=== PATIENT | male | born 1965 | race Caucasian/White ===

== ENCOUNTER 2017-01-02 12:28 | Inpatient (IN) | payer MEDICARE, OTHER ==
[~2017-01-02] VITALS: Ht 180.3 cm; Wt 73.2 kg
[2017-01-02] MEDS ORDERED: LORazepam 1 MG TAB PO PRN (13:15)
[2017-01-02] MEDS ORDERED: MAGNESIUM HYDROXIDE SUSP 30 ML CUP PO PRN (13:15)
[2017-01-02] MEDS ORDERED: ALUMINUM/MAGNESIUM/SIMETH 30 ML CUP PO PRN (13:15)
[2017-01-02] MEDS ORDERED: LORazepam 2 MG/ML VIAL IM PRN (13:15)
[2017-01-02 13:20] VITALS: BP 141/71; PULSE 82; O2SAT 100
--- NOTE | 2017-01-02 14:51 | PD.CONS ---
[facility] By Dr. Vincent Reason for Consult Medical management Primary Care Physician Unknown Diagnoses: History of Present Illness This is a 51-year-old male history of schizophrenia type 2 diabetes who was Fernandez act and admitted to inpatient psychiatry. [facility] consulted for medical management. Patient only concern is that he developed left ankle swelling 2 days ago. Patient stated that he had a previous left ankle fracture about a year ago and per natural sciences manager was managed conservatively/non-operative. Patient stated 2 days ago with swelling of his ankle developed. He denied twisting his ankle or any trauma to the area. Positive for pain. Denied any fevers or chills. Pain is more with movement of the left ankle. Denies any calf pain. Patient stated that he has type 2 diabetes and he smokes 5 cigars per day for about 30 years. All other review systems reviewed and negative. Past Family Social History Allergies: Coded Allergies: No Known Allergies (Verified Allergy, Unknown, 01/02/17) Past Medical History Type 2 diabetes Tobacco abuse Past Surgical History Hernia repair Repair of left broken arm Reported Medications none Active Ordered Medications Current Medications Lorazepam (Ativan) 1 mg Q6H PRN PO MODERATE TO SEVERE ANXIETY; Start 01/02/17 at 13:15 Lorazepam (Ativan Inj) 1 mg Q6H PRN IM MODERATE TO SEVERE ANXIETY; Start 01/02 at 13:15 Acetaminophen (Tylenol) 650 mg Q4H PRN PO Pain 1-5 or Temp >101F; Start at 13:15 Magnesium Hydroxide (Milk Of Magnesia Liq) 30 ml DAILY PRN PO CONSTIPATION; Start 01/02/17 at 13:15 Al Hydrox/Mg Hydrox/Simethicone (Mag-Al Plus Susp Liq) 30 ml Q6H PRN PO DYSPEPSIA; Start 01/02/17 at 13:15 Nicotine (Habitrol 21 Mg Patch.24 Hr) 1 patch DAILY T-DERMAL Last administered on 01/03/17 09:42; Start 01/03/17 at 09:00 Miscellaneous Information 1 HS T-DERMAL ; Start 01/02/17 at 21:00 Insulin Aspart (NovoLOG SUPPLEMENTAL SCALE) 1 ACHS SLIDING SCALE SQ Last administered on 01/03/17 12:00; Start 01/02/17 at 17:00; Stop 01/03/17 at 12 :40; Status DC Insulin Aspart (NovoLOG SUPPLEMENTAL SCALE) 1 ACHS SLIDING SCALE SQ ; Start at 17:00 Insulin Detemir (Levemir Inj) 10 units BID SQ ; Start 01/03/17 at 21:00 Family History Family history reviewed. Patient stated he does not know about any past medical family history. Social History Patient stated that he lives at the house with his mom. Smokes tobacco about 5 cigars a day for about 30 years. Patient stated he stopped drinking 2 months ago. He has been sober since then. Physical Exam Vital Signs Vital Signs Date Time Temp Pulse Resp B/P (MAP) Pulse Ox O2 Delivery O2 Flow Rate FiO2 01/02/17 13:20 82 141/71 (94) 100 Physical Exam GENERAL: This is a well-nourished, well-developed patient, in no apparent distress. SKIN: No rashes, ecchymoses or lesions. Cool and dry. HEAD: Atraumatic. Normocephalic. No temporal or scalp tenderness. EYES: Pupils equal round and reactive. Extraocular motions intact. No scleral icterus. No injection or drainage. ENT: Nose without bleeding, purulent drainage or septal hematoma. Throat without erythema, tonsillar hypertrophy or exudate. Uvula midline. Airway patent. NECK: Trachea midline. No JVD or lymphadenopathy. Supple, nontender, no meningeal signs. CARDIOVASCULAR: Regular rate and rhythm without murmurs, gallops, or rubs. RESPIRATORY: Clear to auscultation. Breath sounds equal bilaterally. No wheezes , rales, or rhonchi. GASTROINTESTINAL: Abdomen soft, non-tender, nondistended. No hepato-splenomegaly , or palpable masses. No guarding. MUSCULOSKELETAL: Left ankle swelling no pitting edema. No erythema noted. Range of motion limited secondary to pain. No warmth to the area. Negative for any calf pain. +2 DP and TP pulses. NEUROLOGICAL: Awake and alert. Cranial nerves II through XII intact. Motor and sensory grossly within normal limits. Five out of 5 muscle strength in all muscle groups. Normal speech. Assessment and Plan Assessment and Plan This is a 51-year-old male past medical history tentatively schizophrenia who was Fernandez act Schizophrenia/Fernandez act -Admitted to inpatient psychiatry being managed by psychiatrist. Left ankle swelling -Patient has a history of left ankle fracture in which treatment was nonoperative. -Will get a x-ray of the ankle. Recommend elevating leg swelling, rest and ice it. Type 2 diabetes -Labs ordered by primary team. Pending results. -Will order insulin sliding scope. Discussed Condition With patient Concepcion Addison MD Jan 02, 2017 14:51
--- NOTE | 2017-01-02 15:12 | RADRPT ---
EXAM DATE/TIME: 01/02/2017 13:55 [facility] COMPARISON: No previous studies available for comparison. INDICATIONS : Pain from fall. MEDICAL HISTORY : None. SURGICAL HISTORY : None. ENCOUNTER: Initial ACUITY: 1 day PAIN SCORE: 5/10 LOCATION: Left ankle. FINDINGS: AP, lateral and oblique views of the left ankle were obtained and demonstrate an intact ankle mortise . Extensive degenerative changes noted in the metatarsal tarsal joint and intertarsal joints with scl erosis, spurring and remodeling. There is diffuse soft tissue swelling. CONCLUSION: 1. Extensive degenerative changes in the mid and hindfoot. This may represent a Charcot joint. 2. Left ankle mortise is intact with no acute fracture. 3. Diffuse soft tissue swelling. Bob Richardson MD on January 02, 2017 at 15:03 Board Certified Radiologist. This report was verified electronically.
[2017-01-02] MEDS: INSULIN ASPART SUPPLEMENTAL SCALE SQ SCH ×2 (16:45→21:05)
[2017-01-02] MEDS: REMOVE OLD NICOTINE PATCH T-DERMAL SCH (21:00)
[2017-01-03 05:46] VITALS: BP 146/72; PULSE 77; RESP 18; TEMP 97.9; O2SAT 99
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
[2017-01-03] MEDS: NICOTINE 21 MG/24 HR PATCH T-DERMAL SCH (09:42)
[2017-01-03 09:43] LABS: BICARBONATE 26.7 MEQ/L (21.0-32.0); BLOOD UREA NITROGEN 12 MG/DL (7-18); CALCIUM 8.8 MG/DL (8.5-10.1); CHLORIDE 102 MEQ/L (98-107); CREATININE 0.67 MG/DL (0.60-1.30); GLOMERULAR FILTRATION RATE 124 ML/MIN (>89); GLUCOSE,RANDOM 320 MG/DL (74-106); SODIUM (NA) 135 MEQ/L (136-145)
[2017-01-03] MEDS: INSULIN ASPART SUPPLEMENTAL SCALE SQ SCH ×4 (09:43→20:29)
[2017-01-03 09:49] LABS: CHOLESTEROL 212 MG/DL (120-200); CHOLESTEROL/ HDL RATIO 5.68 RATIO; HDL CHOLESTEROL 37.3 MG/DL (40.0-60.0); LDL CHOLESTEROL 134 MG/DL (0-99); TRIGLYCERIDES 206 MG/DL (42-150)
[2017-01-03 16:17] LABS: HEMOGLOBIN A1C 8.5 % (4.3-6.0)
[2017-01-03] MEDS ORDERED: LISI-519 PO (16:42)
[2017-01-03] MEDS ORDERED: BENZ0.5T PO (16:42)
[2017-01-03] MEDS ORDERED: ATOR40TA16 PO (16:42)
[2017-01-03] MEDS ORDERED: NOVOINJ3 SQ (16:42)
[2017-01-03] MEDS: BACITRACIN OINT 0.9 GM PKT TOPICAL SCH (17:15)
[2017-01-03 17:36] VITALS: BP 131/75; PULSE 82; RESP 18; TEMP 98.2; O2SAT 99
--- NOTE | 2017-01-03 17:51 | RADRPT ---
EXAM DATE/TIME: 01/03/2017 17:37 [facility] COMPARISON: ANKLE LEFT COMPLETE ([id number]), January 02, 2017, 13:55. INDICATIONS : Left foot fracture, increasing pain with improper healing. MEDICAL HISTORY : None. SURGICAL HISTORY : None. ENCOUNTER: Initial ACUITY: 2 weeks PAIN SCORE: 5/10 LOCATION: Left foot. FINDINGS: Diffuse soft tissue swelling is present with subacute fractures involving the tarsal navicular as wel l as the head of the talus. This may reflect a neuropathic joint. The alignment is anatomic. There rosales s been no significant change when compared to the prior exam. CONCLUSION: 1. Subacute fractures as above. Eusebio Koenig MD on January 03, 2017 at 17:47 Board Certified Radiologist. This report was verified electronically.
--- NOTE | 2017-01-03 17:51 | RADRPT ---
EXAM DATE/TIME: 01/03/2017 17:38 [facility] COMPARISON: ANKLE LEFT COMPLETE ([id number]), January 02, 2017, 13:55. INDICATIONS : Left ankle fracture, increasing pain with improper healing. MEDICAL HISTORY : None. SURGICAL HISTORY : None. ENCOUNTER: Initial ACUITY: 2 weeks PAIN SCORE: 5/10 LOCATION: Left ankle. FINDINGS: Soft tissue swelling is present in a diffuse fashion. There is no evidence of acute fracture. Bony mi neralization is normal. The ankle mortise is intact. CONCLUSION: 1. There is no evidence of acute fracture. Eusebio Koenig MD on January 03, 2017 at 17:49 Board Certified Radiologist. This report was verified electronically.
--- NOTE | 2017-01-03 17:51 | RADRPT ---
EXAM DATE/TIME: 01/03/2017 17:38 [facility] COMPARISON: ANKLE LEFT COMPLETE ([id number]), January 02, 2017, 13:55. INDICATIONS : Left ankle fracture, increasing pain with improper healing. MEDICAL HISTORY : None. SURGICAL HISTORY : None. ENCOUNTER: Initial ACUITY: 2 weeks PAIN SCORE: 5/10 LOCATION: Left ankle. FINDINGS: Soft tissue swelling is present in a diffuse fashion. There is no evidence of acute fracture. Bony mi neralization is normal. The ankle mortise is intact. CONCLUSION: 1. There is no evidence of acute fracture. Eusebio Koenig MD on January 03, 2017 at 17:49 Board Certified Radiologist. This report was verified electronically.
--- NOTE | 2017-01-03 17:51 | RADRPT ---
EXAM DATE/TIME: 01/03/2017 17:38 [facility] COMPARISON: ANKLE LEFT COMPLETE ([id number]), January 02, 2017, 13:55. INDICATIONS : Left ankle fracture, increasing pain with improper healing. MEDICAL HISTORY : None. SURGICAL HISTORY : None. ENCOUNTER: Initial ACUITY: 2 weeks PAIN SCORE: 5/10 LOCATION: Left ankle. FINDINGS: Soft tissue swelling is present in a diffuse fashion. There is no evidence of acute fracture. Bony mi neralization is normal. The ankle mortise is intact. CONCLUSION: 1. There is no evidence of acute fracture. Eusebio Koenig MD on January 03, 2017 at 17:49 Board Certified Radiologist. This report was verified electronically.
--- NOTE | 2017-01-03 17:51 | RADRPT ---
EXAM DATE/TIME: 01/03/2017 17:37 [facility] COMPARISON: ANKLE LEFT COMPLETE ([id number]), January 02, 2017, 13:55. INDICATIONS : Left foot fracture, increasing pain with improper healing. MEDICAL HISTORY : None. SURGICAL HISTORY : None. ENCOUNTER: Initial ACUITY: 2 weeks PAIN SCORE: 5/10 LOCATION: Left foot. FINDINGS: Diffuse soft tissue swelling is present with subacute fractures involving the tarsal navicular as wel l as the head of the talus. This may reflect a neuropathic joint. The alignment is anatomic. There rosales s been no significant change when compared to the prior exam. CONCLUSION: 1. Subacute fractures as above. Eusebio Koenig MD on January 03, 2017 at 17:47 Board Certified Radiologist. This report was verified electronically.
--- NOTE | 2017-01-03 17:51 | RADRPT ---
EXAM DATE/TIME: 01/03/2017 17:37 [facility] COMPARISON: ANKLE LEFT COMPLETE ([id number]), January 02, 2017, 13:55. INDICATIONS : Left foot fracture, increasing pain with improper healing. MEDICAL HISTORY : None. SURGICAL HISTORY : None. ENCOUNTER: Initial ACUITY: 2 weeks PAIN SCORE: 5/10 LOCATION: Left foot. FINDINGS: Diffuse soft tissue swelling is present with subacute fractures involving the tarsal navicular as wel l as the head of the talus. This may reflect a neuropathic joint. The alignment is anatomic. There rosales s been no significant change when compared to the prior exam. CONCLUSION: 1. Subacute fractures as above. Eusebio Koenig MD on January 03, 2017 at 17:47 Board Certified Radiologist. This report was verified electronically.
[2017-01-03] MEDS: INSULIN DETEMIR 100 UNITS/ML VIAL SQ SCH (20:29)
[2017-01-03] MEDS: REMOVE OLD NICOTINE PATCH T-DERMAL SCH (20:52)
[2017-01-03 21:17] LABS: AUTOMATED NEUTROPHIL # 4.4 TH/MM3 (1.8-7.7); BASOPHIL # 0.1 TH/MM3 (0-0.2); BASOPHIL % 1.4 % (0.0-2.0); EOSINOPHIL # 0.3 TH/MM3 (0-0.4); EOSINOPHIL % 4.6 % (0.0-4.0); HEMATOCRIT 42.1 % (39.0-51.0); HEMOGLOBIN 14.1 GM/DL (13.0-17.0); LYMPH % 28.9 % (9.0-44.0); LYMPHOCYTE # 2.2 TH/MM3 (1.0-4.8); MEAN CELL VOLUME 91.4 FL (80.0-100.0); MEAN CORPUSCULAR HEMOGLOBIN 30.5 PG (27.0-34.0); MEAN CORPUSCULAR HGB CONC 33.4 % (32.0-36.0); MEAN PLATELET VOLUME 7.9 FL (7.0-11.0); MONO % 7.1 % (0.0-8.0); MONOCYTE # 0.5 TH/MM3 (0-0.9); PLATELET COUNT 328 TH/MM3 (150-450); RED BLOOD COUNT 4.61 MIL/MM3 (4.50-5.90); RED CELL DISTRIBUTION WIDTH 13.2 % (11.6-17.2); WHITE BLOOD COUNT 7.6 TH/MM3 (4.0-11.0)
[2017-01-03 21:31] LABS: ALBUMIN 3.4 GM/DL (3.4-5.0); DIRECT BILIRUBIN ADULT 0.1 MG/DL (0.0-0.2)
--- NOTE | 2017-01-03 21:32 | RADRPT ---
EXAM DATE/TIME: 01/03/2017 21:15 [place] COMPARISON: No previous studies available for comparison. INDICATIONS : Altered mental status. RADIATION DOSE: 33.80 CTDIvol (mGy) MEDICAL HISTORY : Seizures. Diabetes mellitus type 1. SURGICAL HISTORY : None. ENCOUNTER: Initial ACUITY: 1 day PAIN SCALE: 0/10 LOCATION: cranial TECHNIQUE: Multiple contiguous axial images were obtained of the head. Using automated exposure control and adj ustment of the mA and/or kV according to patient size, radiation dose was kept as low as reasonably a chievable to obtain optimal diagnostic quality images. DICOM format image data is available electro nically for review and comparison. FINDINGS: CEREBRUM: The ventricles are normal for age. No evidence of midline shift, mass lesion, hemorrhage or acute in farction. No extra-axial fluid collections are seen. POSTERIOR FOSSA: The cerebellum and brainstem are intact. The 4th ventricle is midline. The cerebellopontine angle i s unremarkable. EXTRACRANIAL: The visualized portion of the orbits is intact. SKULL: The calvaria is intact. No evidence of skull fracture. CONCLUSION: Negative noncontrast CT. Bob Richardson MD on January 03, 2017 at 21:30 Board Certified Radiologist. This report was verified electronically.
--- NOTE | 2017-01-03 21:41 | MB ---
cc: SARAI GUO DATE OF CONSULTATION 01/03/2017 CHIEF COMPLAINT Left foot and ankle swelling. HISTORY OF THE PRESENT ILLNESS The patient states that the swelling started about 2 days ago. He does not remember twisting or injuring his ankle. He states that about a year ago he did have an injury to that ankle but otherwise it has been fine. He states that it is not painful and he is able to ambulate on it. The patient also has some small wounds to the right foot. PAST MEDICAL HISTORY Includes type 2 diabetes. ALLERGIES NO KNOWN DRUG ALLERGIES. PAST SURGICAL HISTORY 1. ORIF of the left arm. 2. And hernia repair. SOCIAL HISTORY The patient does use tobacco and was Fernandez acted for schizophrenia. MEDICATION Please see list. FAMILY HISTORY Noncontributory. Temperature is 97.9, pulse 77, respiratory rate 18, blood pressure 146/72, pulse ox 99% O2 on room air. Ankle and foot x-rays are pending. PHYSICAL EXAMINATION EXTREMITIES: The patient has bilateral diminished but palpable DP and PT pulses. Cap fill time less than 3 seconds. Gross sensation is intact. Left foot is edematous when compared to the right foot and ankle. It is nonpitting. No pain or tenderness with palpation. Range of motion is limited but not painful at the ankle level. Edema seems chronic in nature. The right foot has small dorsal abrasions on the first, second, third and fourth digits. Fibrogranular wound bed. No erythema, no drainage. No malodor. No signs of infection. ASSESSMENT/PLAN 1. Left foot and ankle suspected chronic edema due to post-traumatic arthritis. 2. Right foot abrasions, noninfected. Elevate the left ankle while at rest and ice daily for 20 minutes at a time. X-rays are pending, if no fracture or abnormality noted on x-ray then would treat the issue as arthritis. Antibiotic ointment and bandages to the right foot ulceration. Monitor for any signs of infection. Unless the x-ray reveals a fracture no further intervention should be needed at this time. Thank you for this consultation. Sarai Guo ADDENDUM- Radiographs completed, no fracture, read as possible charcot but this does not match the clinic exam. 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 JENSEN/PREMA /5:12 PM /9:32 PM PAT
[2017-01-03 21:56] LABS: INDIRECT BILIRUBIN 0.2 MG/DL (0.0-0.8); TOTAL BILIRUBIN ADULT 0.3 MG/DL (0.2-1.0); TOTAL PROTEIN 7.4 GM/DL (6.4-8.2)
[2017-01-04 05:42] VITALS: BP 131/78; PULSE 84; RESP 16; TEMP 97.6; O2SAT 98
[2017-01-04] MEDS: INSULIN ASPART SUPPLEMENTAL SCALE SQ SCH ×4 (07:36→20:46)
[2017-01-04] MEDS: INSULIN DETEMIR 100 UNITS/ML VIAL SQ SCH ×2 (08:36→20:46)
[2017-01-04] MEDS: BACITRACIN OINT 0.9 GM PKT TOPICAL SCH (08:36)
[2017-01-04] MEDS: NICOTINE 21 MG/24 HR PATCH T-DERMAL SCH (08:37)
--- NOTE | 2017-01-04 08:55 | HHI.PYPN ---
Subjective Chief Complaint: "Wondering if I should be on meds." Remarks Patient seen and examined with nurse. Chart reviewed. Records requested per my order but nothing received for review. Case discussed with nursing staff. Case discussed in treatment team. Counselor reports he has spoken with sister Kiara who gave a more solid history of schizophrenia for the patient. Counselor reports family would like to see patient placed out of concern for possible self-care deficit. Per nursing staff, patient is polite and no behavioral problem. On my examination today, the patient remains a vague historian. No reported issues with mood; affect is flat. Denies AVH. Denies SI/HI. No physical complaints. Patient open to possible [facility] placement. MOCA v7.1 original version: Visuospatial/executive: 04/11 Namin/3 Attention: 07/10 Language: 2 Abstraction: 02 Delayed recall: 0 Orientation: 07/10 Total: Pt has provided permission to contact sister, Kiara. I have spoken with Kiara myself. She reports patient had first episode of what was diagnosed as schizophrenia in his 20's. However, she notes there were also issues in his pre -morbid function including difficulties with holding a job in adolescence. He did have an episode of catatonia during one of his earlier episodes. She notes patient has had positive symptoms in the past including AH and has also experienced behavioral disorganization. She thinks that patient seems less "drugged" off of psychotropics, although it is unclear which psychotropics and at which dose patient has tried. Kiara does remember Haldol being particularly bad with respect to making patient seem overmedicated. Kiara thinks patient would benefit from placement in e.g. [facility]. Psychoeducation provided to sister. She thanks me for the call. Review of Systems ROS Limitations: Poor Historian Except as stated in HPI: all other systems reviewed are Neg Mental Status Examination Appearance: Appropriate Consciousness: Alert Orientation: Person, Place Motor Activity: Other (No abnormal motor movements noted) Speech: Slow Language: Adequate Fund of Knowledge: Adequate Attention and Concentration: Adequate Memory: Impaired (see above) Mood: Other (No issues with mood) Affect: Flat Thought Process & Associations: Other (Some paucity of thought) Thought Content: Appropriate Hallucination Type: None Delusion Type: None Suicidal Ideation: No Suicidal Plan: No Suicidal Intention: No Homicidal Ideation: No Homicidal Plan: No Homicidal Intention: No Insight: Fair Judgment: Adequate (unclear) Results Labs Test 01/03/17 20:50 White Blood Count 7.6 TH/MM3 Red Blood Count 4.61 MIL/MM3 Hemoglobin 14.1 GM/DL Hematocrit 42.1 % Mean Corpuscular Volume 91.4 FL Mean Corpuscular Hemoglobin 30.5 PG Mean Corpuscular Hemoglobin Concent 33.4 % Red Cell Distribution Width 13.2 % Platelet Count 328 TH/MM3 Mean Platelet Volume 7.9 FL Neutrophils (%) (Auto) 58.0 % Lymphocytes (%) (Auto) 28.9 % Monocytes (%) (Auto) 7.1 % Eosinophils (%) (Auto) 4.6 % Basophils (%) (Auto) 1.4 % Neutrophils # (Auto) 4.4 TH/MM3 Lymphocytes # (Auto) 2.2 TH/MM3 Monocytes # (Auto) 0.5 TH/MM3 Eosinophils # (Auto) 0.3 TH/MM3 Basophils # (Auto) 0.1 TH/MM3 CBC Comment DIFF FINAL Differential Comment Total Bilirubin 0.3 MG/DL Direct Bilirubin 0.1 MG/DL Indirect Bilirubin 0.2 MG/DL Aspartate Amino Transf (AST/SGOT) 9 U/L Alanine Aminotransferase (ALT/SGPT) 18 U/L Alkaline Phosphatase 158 U/L Ammonia 36 MCMOL/L Total Protein 7.4 GM/DL Albumin 3.4 GM/DL Vitamin B12 Level 316 PG/ML 25-Hydroxy Vitamin D Total 11.9 ng/ML Thyroid Stimulating Hormone 3rd Gen 1.570 uIU/ML Labs reviewed: CBC unremarkable. LFTs reveal mildly elevated alk phos. Ammonia level mildly elevated. Vitamin D level low. B12 and TSH wnl. RPR non- reactive. Last Impressions Head CT 01/03/17 0000 Signed Impressions: Service Date/Time: Tuesday, January 03, 2017 21:15 - CONCLUSION: Negative noncontrast CT. Bob Richardson MD Foot X-Ray 01/03/17 0000 Signed Impressions: Service Date/Time: Tuesday, January 03, 2017 17:37 - CONCLUSION: 1. Subacute fractures as above. Eusebio Koenig MD Ankle X-Ray 01/03/17 0000 Signed Impressions: Service Date/Time: Da, January 03, 2017 17:38 - CONCLUSION: 1. There is no evidence of acute fracture. Eusebio Koenig MD Vitals/IOs Vital Signs Date Time Temp Pulse Resp B/P (MAP) Pulse Ox O2 Delivery O2 Flow Rate FiO2 01/04/17 05:42 97.6 84 16 131/78 (95) 98 Assessment & Plan Problem List: (1) Schizophrenia, residual type ICD Codes: F20.5 - Residual schizophrenia Assessment & Plan: Rule-out some degree of neurocognitive disorder Assessment & Plan Bedside cognitive screening reveals cognitive impairment, chiefly in delayed recall and abstraction, and some degree of neurocognitive disorder cannot be ruled out although collateral from patient's sister Kiara obtained by counselor does suggest a history of schizophrenia. I will adjust the diagnosis to residual schizophrenia for now with a rule out of some degree of neurocognitive disorder. To consider initiation of antipsychotic for relapse prevention. I will have nurse request [facility] med [facility] to see what he has tried before. Check EKG for QTc. Replete vitamin D. Pattern of cognitive impairment not suggestive of hyperammonemic delirium (i.e. orientation and attention are relatively preserved), and so I suspect this is an incidental finding. Podiatry and hospitalist input noted and appreciated. I have asked RN to contact Dr. Gusman's office to ask her to opine on how to proceed given radiologic findings. Continue to monitor on the inpatient unit. Continue other medications and care as ordered. Justification for Cont. Inpt. Risk for decompensation in less restrictive environment. Discharge Planning Placement. Case discussed with counselor. Request HC Surrog/Guard Advoc?: No Eusebio Forrester MD Jan 04, 2017 08:55
--- NOTE | 2017-01-04 11:15 | PD.TTN ---
Patient Problems 1. Discharge planning 2. Medication compliance 3. Knowledge deficit 4. Lack of coping skills Progress Toward Goals Provider Present: Dr. Eric Forrester Provider Input: Pt medication regiment will be evaluated with possible addition of an antipsychotic to regiment. Nurse(s) Present: Nella Bansal RN Nurse(s) Input: Pt appears pleasant, calm, cooperative, appropriate with no behavioral issues on unit. He is compliant with medication. Psychiatric Counselors Present: ALYSON Lyle Psych Therapist Input: Pt appears calm, cooperative, appropriate, organized and with some memory deficits. Pt struggles with recall of some information. No noted agitation or aggression. He appears somewhat discharge focused and may be minimizing symptoms as a means of achieving discharge. Pt presents with limited insight into condition and need for care. Appears to be utilizing coping and emotional regulation skills as he has had no outbursts on unit. Group Spec/RT/OT/TAYLOR Present: CLAUDIA Medley Group Spec/RT/OT/TAYLOR Input: Pt is withdrawn from others and often seen in his room reading. Pt has not attended groups so far. Discharge Plan SMA Possible discharge to an NURSING HOME with outpatient follow up in the community for medication management. Documentation Scribe: ALYSON Lyle Jonathan LMHC Jan 04, 2017 11:15
--- NOTE | 2017-01-04 13:24 | HHI.PR ---
Subjective Remarks This is a 51-year-old male history of schizophrenia type 2 diabetes who was Fernandez act and admitted to inpatient psychiatry. [facility]&H H consulted for medical management. Patient only concern is that he developed left ankle swelling 2 days ago. Patient stated that he had a previous left ankle fracture about a year ago and per social media specialist was managed conservatively/non-operative. Patient stated 2 days ago with swelling of his ankle developed. He denied twisting his ankle or any trauma to the area. Positive for pain. Denied any fevers or chills. Pain is more with movement of the left ankle. Denies any calf pain. Patient stated that he has type 2 diabetes and he smokes 5 cigars per day for about 30 years. 01/04: stable seen in his [facility] in the presence of nurse. no complaint. Objective Vital Signs Date Time Temp Pulse Resp B/P (MAP) Pulse Ox O2 Delivery O2 Flow Rate FiO2 01/04/17 05:42 97.6 84 16 131/78 (95) 98 01/03/17 17:36 98.2 82 18 131/75 (93) 99 Result Diagram: 01/03/17204901/03/17 0720 Imaging Last Impressions Head CT 01/03/17 0000 Signed Impressions: Service Date/Time: Tuesday, January 03, 2017 21:15 - CONCLUSION: Negative noncontrast CT. Bob Richardson MD Foot X-Ray 01/03/17 0000 Signed Impressions: Service Date/Time: Tuesday, January 03, 2017 17:37 - CONCLUSION: 1. Subacute fractures as above. Eusebio Koenig MD Ankle X-Ray 01/03/17 0000 Signed Impressions: Service Date/Time: Tuesday, January 03, 2017 17:38 - CONCLUSION: 1. There is no evidence of acute fracture. Eusebio Koenig MD Procedures None Other Results Laboratory Tests Test 01/03/17 07:20 01/03/17 20:50 Blood Urea Nitrogen 12 MG/DL Creatinine 0.67 MG/DL Random Glucose 320 MG/DL Calcium Level 8.8 MG/DL Sodium Level 135 MEQ/L Potassium Level 4.2 MEQ/L Chloride Level 102 MEQ/L Carbon Dioxide Level 26.7 MEQ/L Anion Gap 6 MEQ/L Estimat Glomerular Filtration Rate 124 ML/MIN Hemoglobin A1c 8.5 % Triglycerides Level 206 MG/DL Cholesterol Level 212 MG/DL LDL Cholesterol 134 MG/DL HDL Cholesterol 37.3 MG/DL Cholesterol/HDL Ratio 5.68 RATIO White Blood Count 7.6 TH/MM3 Red Blood Count 4.61 MIL/MM3 Hemoglobin 14.1 GM/DL Hematocrit 42.1 % Mean Corpuscular Volume 91.4 FL Mean Corpuscular Hemoglobin 30.5 PG Mean Corpuscular Hemoglobin Concent 33.4 % Red Cell Distribution Width 13.2 % Platelet Count 328 TH/MM3 Mean Platelet Volume 7.9 FL Neutrophils (%) (Auto) 58.0 % Lymphocytes (%) (Auto) 28.9 % Monocytes (%) (Auto) 7.1 % Eosinophils (%) (Auto) 4.6 % Basophils (%) (Auto) 1.4 % Neutrophils # (Auto) 4.4 TH/MM3 Lymphocytes # (Auto) 2.2 TH/MM3 Monocytes # (Auto) 0.5 TH/MM3 Eosinophils # (Auto) 0.3 TH/MM3 Basophils # (Auto) 0.1 TH/MM3 CBC Comment DIFF FINAL Differential Comment Total Bilirubin 0.3 MG/DL Direct Bilirubin 0.1 MG/DL Indirect Bilirubin 0.2 MG/DL Aspartate Amino Transf (AST/SGOT) 9 U/L Alanine Aminotransferase (ALT/SGPT) 18 U/L Alkaline Phosphatase 158 U/L Ammonia 36 MCMOL/L Total Protein 7.4 GM/DL Albumin 3.4 GM/DL Vitamin B12 Level 316 PG/ML 25-Hydroxy Vitamin D Total 11.9 ng/ML Thyroid Stimulating Hormone 3rd Gen 1.570 uIU/ML Objective Remarks GENERAL: This is a well-nourished, well-developed patient, in no apparent distress. SKIN: No rashes, ecchymoses or lesions. Cool and dry. HEAD: Atraumatic. Normocephalic. No temporal or scalp tenderness. EYES: Pupils equal round and reactive. Extraocular motions intact. No scleral icterus. No injection or drainage. ENT: Nose without bleeding, purulent drainage or septal hematoma. Throat without erythema, tonsillar hypertrophy or exudate. Uvula midline. Airway patent. NECK: Trachea midline. No JVD or lymphadenopathy. Supple, nontender, no meningeal signs. CARDIOVASCULAR: Regular rate and rhythm without murmurs, gallops, or rubs. RESPIRATORY: Clear to auscultation. Breath sounds equal bilaterally. No wheezes , rales, or rhonchi. GASTROINTESTINAL: Abdomen soft, non-tender, nondistended. No hepato-splenomegaly , or palpable masses. No guarding. NEUROLOGICAL: Awake and alert. Cranial nerves II through XII intact. Motor and sensory grossly within normal limits. Five out of 5 muscle strength in all muscle groups. Normal speech. Medications and IVs Current Medications Medications (Trade) Dose Ordered Sig/Shakeel Route Start Time Stop Time Status Last Admin (Ativan) 1 mg Q6H PRN PO 01/02/17 13:15 (Ativan Inj) 1 mg Q6H PRN IM 01/02/17 13:15 (Tylenol) 650 mg Q4H PRN PO 01/02/17 13:15 (Milk Of Magnesia Liq) 30 ml DAILY PRN PO 01/02/17 13:15 (Mag-Al Plus Susp Liq) 30 ml Q6H PRN PO 01/02/17 13:15 (Habitrol 21 Mg Patch.24 Hr) 1 patch DAILY T-DERMAL 01/03/17 09:00 01/04/17 08:37 Miscellaneous Information 1 HS T-DERMAL 01/02/17 21:00 (NovoLOG SUPPLEMENTAL SCALE) 1 ACHS SLIDING SCALE SQ 01/03/17 17:00 01/04/17 12:00 (Levemir Inj) 10 units BID SQ 01/03/17 21:00 01/04/17 08:36 (Bacitracin Oint Packet) 0.9 gm DAILY TOPICAL 01/03/17 17:15 01/04/17 08:36 A/P Assessment and Plan This is a 51-year-old male past medical history tentatively schizophrenia who was Fernandez act Schizophrenia/Fernandez act continue management by Psychiatry specialist. Left ankle swelling -Patient has a history of left ankle fracture in which treatment was nonoperative.seen by Podiatry specialist continue wound care. Type 2 diabetes -Uncontrolled increased dosages of Levemir to 14 units bid, sliding scale and scheduled insulin pre meals. tobacco dependence Strongly recommended to stop smoking. Discharge Planning as per attending physician. Shravan Carpenter MD Jan 04, 2017 13:24
[2017-01-04] MEDS: INSULIN ASPART 1,000 UNITS/10 ML VIAL SQ SCH (16:53)
[2017-01-04] MEDS: REMOVE OLD NICOTINE PATCH T-DERMAL SCH (20:46)
--- NOTE | 2017-01-04 21:09 | EKG ---
Date Performed: 01/04/2017 Time Performed: 15:01:02 PTAGE: 51 years EKG: Sinus rhythm NORMAL ECG NO PREVIOUS TRACING DOCTOR: Janell Zavaleta Interpretating Date/Time 01/04/2017 21:08:41
--- NOTE | 2017-01-04 21:09 | EKG ---
Date Performed: 01/04/2017 Time Performed: 15:01:02 PTAGE: 51 years EKG: Sinus rhythm NORMAL ECG NO PREVIOUS TRACING DOCTOR: Janell Zavaleta Interpretating Date/Time 01/04/2017 21:08:41
--- NOTE | 2017-01-04 21:09 | EKG ---
Date Performed: 01/04/2017 Time Performed: 15:01:02 PTAGE: 51 years EKG: Sinus rhythm NORMAL ECG NO PREVIOUS TRACING DOCTOR: Janell Zavaleta Interpretating Date/Time 01/04/2017 21:08:41
--- NOTE | 2017-01-04 23:00 | MG ---
cc: DEE ALLEN MD, DAVID Sex: M DATE OF [address] Forrester MEDICAL HISTORY Schizophrenia, type 2 diabetes, hernia repair. MEDICATIONS Nicotine (Habitrol patch) Levimir. DESCRIPTION: The EEG reveals a background that is low voltage EEG with background activity of 8-9 Hz alpha, superimposed by excess beta activity. Hyperventilation did not change the background activity. Photic stimulation did not elicit driving response. There is excessive eye blinking artifact and movement artifact. There were no electrographic seizures or epileptiform discharges noted. INTERPRETATION This is an awake, drowsy EEG. Excess beta activity is a nonspecific finding that may be related to medication adverse effect like benzos or barbiturates. Absence of electrographic seizures or epileptiform discharges does not rule out the diagnosis of epilepsy. Clinical correlation is recommended. MD ARIADNA Mcmillan/FERNANDO /10:18 PM /10:48 PM MTDSabiha
[2017-01-05 05:43] VITALS: BP 125/66; PULSE 82; RESP 17; TEMP 97.8; O2SAT 98
[2017-01-05] MEDS: INSULIN ASPART 1,000 UNITS/10 ML VIAL SQ SCH ×3 (07:30→16:16)
[2017-01-05] MEDS: INSULIN ASPART SUPPLEMENTAL SCALE SQ SCH ×4 (07:30→21:00)
[2017-01-05] MEDS: NICOTINE 21 MG/24 HR PATCH T-DERMAL SCH (08:52)
[2017-01-05] MEDS: BACITRACIN OINT 0.9 GM PKT TOPICAL SCH (08:52)
[2017-01-05] MEDS: CHOLECALCIFEROL (VIT D3) 1000 UNIT TAB PO SCH (08:52)
[2017-01-05] MEDS: INSULIN DETEMIR 100 UNITS/ML VIAL SQ SCH ×2 (08:52→21:00)
--- NOTE | 2017-01-05 09:40 | HHI.PYPN ---
Subjective Chief Complaint: "Wondering if I should be on meds." Remarks Patient seen and examined with nurse. Chart reviewed. I note that we have received records from patient's pharmacy indicating that he has been on Zyprexa 20 mg in the past. No other records received so far. Case discussed with nursing staff. On my examination today, the patient is in good spirits. He says that he is "feeling A-1! Feeling great!" Denies AVH. No paranoia. No hypomanic or manic symptoms or other affective symptoms.. We discussed collateral from patient's sister Kiara and discussed patient's historical diagnosis of schizophrenia. This leads into a discussion of the rationale, risks, benefits and alternatives of antipsychotic treatment. I discussed several possible antipsychotic options with the patient and recommend initiation of a relatively metabolically benign atypical antipsychotic such as Abilify for relapse prevention as he is not having positive symptoms of schizophrenia at present. Patient says he would like to think about it prior to initiating a medication. No physical complaints. Review of Systems Except as stated in HPI: all other systems reviewed are Neg Mental Status Examination Appearance: Appropriate Consciousness: Alert Orientation: Person, Place Motor Activity: Other (no motoric abnormalities noted) Speech: Unremarkable Language: Adequate Fund of Knowledge: Adequate Attention and Concentration: Adequate Memory: Impaired Mood: Good Affect: Blunt (more reactive today) Thought Process & Associations: Linear Thought Content: Appropriate Hallucination Type: None Delusion Type: None Suicidal Ideation: No Homicidal Ideation: No Insight: Fair Judgment: Adequate (fair at best) Results Labs labs reviewed. EEG result noted revealing increased beta rhythm but no epileptiform discharges. Vitals/IOs Vital Signs Date Time Temp Pulse Resp B/P (MAP) Pulse Ox O2 Delivery O2 Flow Rate FiO2 01/05/17 05:43 97.8 82 17 125/66 (85) 98 Assessment & Plan Problem List: (1) Schizophrenia, residual type ICD Codes: F20.5 - Residual schizophrenia Assessment & Plan Patient declines initiation of antipsychotic at this time, says he would like to think about it. He is capacitated to decline psychotropics at this time. As this agent is for maintenance and relapse prevention and not for acute treatment of psychotic decompensation, it could certainly be initiated at any point either while the patient remains inpatient or after discharge. Counselor informs me of possible accepting [facility]. I will have the nurse ask the hospitalist for medical clearance if possible. Continue to monitor on the inpatient unit. Continue other medications and care as ordered. Justification for Cont. Inpt. Risk for decompensation in less restrictive environment. Discharge Planning Possible discharge to [facility] tomorrow, . Request HC Surrog/Guard Advoc?: No Eusebio Forrester MD Jan 05, 2017 09:40
--- NOTE | 2017-01-05 16:10 | HHI.PR ---
Subjective Remarks This is a 51-year-old male history of schizophrenia type 2 diabetes who was Fernandez act and admitted to inpatient psychiatry. H&H H consulted for medical management. Patient only concern is that he developed left ankle swelling 2 days ago. 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 Patient stated 2 days ago with swelling of his ankle developed. He denied twisting his ankle or any trauma to the area. Positive for pain. Denied any fevers or chills. Pain is more with movement of the left ankle. Denies any calf pain. Patient stated that he has type 2 diabetes and he smokes 5 cigars per day for about 30 years. 01/04: stable seen in his [facility] in the presence of nurse. no complaint. 01/05: Seen stable continue with uncontrolled hyperglycemia, increased Levemir to 14 units BID and continue sliding scale to medium dose and regular insulin with premeal 5 units. no nausea, vomit or diarrhea. Objective Vital Signs Date Time Temp Pulse Resp B/P (MAP) Pulse Ox O2 Delivery O2 Flow Rate FiO2 01/05/17 05:43 97.8 82 17 125/66 (85) 98 Result Diagram: 01/03/17204901/03/17 0720 Imaging Last Impressions Head CT 01/03/17 0000 Signed Impressions: Service Date/Time: Tuesday, January 03, 2017 21:15 - CONCLUSION: Negative noncontrast CT. Bob Richardson MD Foot X-Ray 01/03/17 0000 Signed Impressions: Service Date/Time: Tuesday, January 03, 2017 17:37 - CONCLUSION: 1. Subacute fractures as above. Eusebio Koenig MD Ankle X-Ray 01/03/17 0000 Signed Impressions: Service Date/Time: Tuesday, January 03, 2017 17:38 - CONCLUSION: 1. There is no evidence of acute fracture. Eusebio Koenig MD Procedures None Other Results Laboratory Tests Test 01/03/17 07:20 01/03/17 20:50 Blood Urea Nitrogen 12 MG/DL Creatinine 0.67 MG/DL Random Glucose 320 MG/DL Calcium Level 8.8 MG/DL Sodium Level 135 MEQ/L Potassium Level 4.2 MEQ/L Chloride Level 102 MEQ/L Carbon Dioxide Level 26.7 MEQ/L Anion Gap 6 MEQ/L Estimat Glomerular Filtration Rate 124 ML/MIN Hemoglobin A1c 8.5 % Triglycerides Level 206 MG/DL Cholesterol Level 212 MG/DL LDL Cholesterol 134 MG/DL HDL Cholesterol 37.3 MG/DL Cholesterol/HDL Ratio 5.68 RATIO White Blood Count 7.6 TH/MM3 Red Blood Count 4.61 MIL/MM3 Hemoglobin 14.1 GM/DL Hematocrit 42.1 % Mean Corpuscular Volume 91.4 FL Mean Corpuscular Hemoglobin 30.5 PG Mean Corpuscular Hemoglobin Concent 33.4 % Red Cell Distribution Width 13.2 % Platelet Count 328 TH/MM3 Mean Platelet Volume 7.9 FL Neutrophils (%) (Auto) 58.0 % Lymphocytes (%) (Auto) 28.9 % Monocytes (%) (Auto) 7.1 % Eosinophils (%) (Auto) 4.6 % Basophils (%) (Auto) 1.4 % Neutrophils # (Auto) 4.4 TH/MM3 Lymphocytes # (Auto) 2.2 TH/MM3 Monocytes # (Auto) 0.5 TH/MM3 Eosinophils # (Auto) 0.3 TH/MM3 Basophils # (Auto) 0.1 TH/MM3 CBC Comment DIFF FINAL Differential Comment Total Bilirubin 0.3 MG/DL Direct Bilirubin 0.1 MG/DL Indirect Bilirubin 0.2 MG/DL Aspartate Amino Transf (AST/SGOT) 9 U/L Alanine Aminotransferase (ALT/SGPT) 18 U/L Alkaline Phosphatase 158 U/L Ammonia 36 MCMOL/L Total Protein 7.4 GM/DL Albumin 3.4 GM/DL Vitamin B12 Level 316 PG/ML 25-Hydroxy Vitamin D Total 11.9 ng/ML Thyroid Stimulating Hormone 3rd Gen 1.570 uIU/ML Rapid Plasma Reagin NON-REACTIVE Objective Remarks GENERAL: This is a well-nourished, well-developed patient, in no apparent distress. SKIN: No rashes, ecchymoses or lesions. Cool and dry. HEAD: Atraumatic. Normocephalic. No temporal or scalp tenderness. EYES: Pupils equal round and reactive. Extraocular motions intact. No scleral icterus. No injection or drainage. ENT: Nose without bleeding, purulent drainage or septal hematoma. Throat without erythema, tonsillar hypertrophy or exudate. Uvula midline. Airway patent. NECK: Trachea midline. No JVD or lymphadenopathy. Supple, nontender, no meningeal signs. CARDIOVASCULAR: Regular rate and rhythm without murmurs, gallops, or rubs. RESPIRATORY: Clear to auscultation. Breath sounds equal bilaterally. No wheezes , rales, or rhonchi. GASTROINTESTINAL: Abdomen soft, non-tender, nondistended. No hepato-splenomegaly , or palpable masses. No guarding. NEUROLOGICAL: Awake and alert. Cranial nerves II through XII intact. Motor and sensory grossly within normal limits. Five out of 5 muscle strength in all muscle groups. Normal speech. Medications and IVs Current Medications Medications (Trade) Dose Ordered Sig/Shakeel Route Start Time Stop Time Status Last Admin (Ativan) 1 mg Q6H PRN PO 01/02/17 13:15 (Ativan Inj) 1 mg Q6H PRN IM 01/02/17 13:15 (Tylenol) 650 mg Q4H PRN PO 01/02/17 13:15 (Milk Of Magnesia Liq) 30 ml DAILY PRN PO 01/02/17 13:15 (Mag-Al Plus Susp Liq) 30 ml Q6H PRN PO 01/02/17 13:15 (Habitrol 21 Mg Patch.24 Hr) 1 patch DAILY T-DERMAL 01/03/17 09:00 01/05/17 08:52 Miscellaneous Information 1 HS T-DERMAL 01/02/17 21:00 (NovoLOG SUPPLEMENTAL SCALE) 1 ACHS SLIDING SCALE SQ 01/03/17 17:00 01/05/17 11:25 (Bacitracin Oint Packet) 0.9 gm DAILY TOPICAL 01/03/17 17:15 01/05/17 08:52 (Levemir Inj) 14 units BID SQ 01/04/17 21:00 01/05/17 08:52 (NovoLOG INJ) 5 units TIDAC SQ 01/04/17 17:00 01/05/17 11:25 (Vitamin D3) 2,000 units DAILY PO 01/05/17 09:00 01/05/17 08:52 A/P Assessment and Plan This is a 51-year-old male past medical history tentatively schizophrenia who was Fernandez act Schizophrenia/Fernandez act continue management by Psychiatry specialist. Left ankle swelling -Patient has a history of left ankle fracture in which treatment was nonoperative.seen by Podiatry specialist continue wound care. Type 2 diabetes -Poorly controlled DM II, Hemoglobin A1C 8.5, Levemir 15 units BID, Regular insulin with every meal and sliding scale to medium dose tobacco dependence Strongly recommended to stop smoking. Hyperlipidemia started on Atorvastatin 40 mg daily. Discharge Planning as per attending physician. Shravan Carpenter MD Jan 05, 2017 16:10
[2017-01-05 17:40] VITALS: BP 147/84; PULSE 89; RESP 18; TEMP 97.7; O2SAT 99
[2017-01-05] MEDS: REMOVE OLD NICOTINE PATCH T-DERMAL SCH (21:00)
[2017-01-05] MEDS: ATORVASTATIN 40 MG TAB PO SCH (21:00)
[2017-01-06 05:56] VITALS: BP 136/75; PULSE 85; RESP 18; TEMP 97.9; O2SAT 96
[2017-01-06] MEDS: INSULIN ASPART 1,000 UNITS/10 ML VIAL SQ SCH ×2 (07:50→11:30)
[2017-01-06] MEDS: INSULIN ASPART SUPPLEMENTAL SCALE SQ SCH ×2 (07:50→11:03)
[2017-01-06] MEDS: NICOTINE 21 MG/24 HR PATCH T-DERMAL SCH (08:47)
[2017-01-06] MEDS: CHOLECALCIFEROL (VIT D3) 1000 UNIT TAB PO SCH (08:47)
[2017-01-06] MEDS: BACITRACIN OINT 0.9 GM PKT TOPICAL SCH (08:47)
[2017-01-06] MEDS: INSULIN DETEMIR 100 UNITS/ML VIAL SQ SCH ×2 (08:47→21:52)
[2017-01-06] MEDS: ACETAMINOPHEN 325 MG TAB PO PRN (09:23)
--- NOTE | 2017-01-06 11:01 | HHI.PYPN ---
Subjective Chief Complaint: "Wondering if I should be on meds." Remarks Patient seen and examined with nurse in counselor. Chart reviewed. Case discussed with nursing staff. No behavioral problems overnight. Counselor reports that the patient can go to [facility] once medically cleared. Facility is requesting a screening chest x-ray prior to discharge. On my examination today, the patient remains in good spirits. No positive psychotic symptoms. No physical complaints. We will resume our discussion about possible initiation of antipsychotic medication for relapse prevention, and today the patient is agreeable to a trial of Abilify. Review of Systems Except as stated in HPI: all other systems reviewed are Neg Mental Status Examination Appearance: Appropriate Consciousness: Alert Orientation: Person, Place (at least) Motor Activity: Other (No abnormal motor movements noted) Speech: Unremarkable Language: Adequate Fund of Knowledge: Adequate Attention and Concentration: Adequate Memory: Impaired (per MOCA) Mood: Good Affect: Other (a little blunted but overall more full and reactive versus admission) Thought Process & Associations: Linear Thought Content: Appropriate Hallucination Type: None Delusion Type: None Suicidal Ideation: No Homicidal Ideation: No Insight: Fair Judgment: Adequate (fair at best) Results Labs Labs reviewed. No new labs. Bedside glucoses reviewed. Vitals/IOs Vital Signs Date Time Temp Pulse Resp B/P (MAP) Pulse Ox O2 Delivery O2 Flow Rate FiO2 01/06/17 05:56 97.9 85 18 136/75 (95) 96 Assessment & Plan Problem List: (1) Schizophrenia, residual type ICD Codes: F20.5 - Residual schizophrenia Assessment & Plan Initiate Abilify 5mg PO daily for relapse prevention in schizophrenia. R/B/A reviewed with pt. Chest x-ray as requested by facility. Hospitalist input noted and appreciated. Continue to monitor on the inpatient unit. Continue other medications and care as ordered. Justification for Cont. Inpt. Med changes. Discharge Planning Anticipate discharged [facility] tomorrow, Tuesday. Request HC Surrog/Guard Advoc?: No Eusebio Forrester MD Jan 06, 2017 11:01
[2017-01-06] MEDS: ARIPiprazole 5 MG TAB PO SCH (11:35)
[2017-01-06] MEDS ORDERED: INSULIN DETEMIR 100 UNITS/ML VIAL SQ ONE (12:15)
--- NOTE | 2017-01-06 12:54 | HHI.PR ---
Subjective Remarks This is a 51-year-old male history of schizophrenia type 2 diabetes who was Fernandez act and admitted to inpatient psychiatry. H&H H consulted for medical management. Patient only concern is that he developed left ankle swelling 2 days ago. 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 Patient stated 2 days ago with swelling of his ankle developed. He denied twisting his ankle or any trauma to the area. Positive for pain. Denied any fevers or chills. Pain is more with movement of the left ankle. Denies any calf pain. Patient stated that he has type 2 diabetes and he smokes 5 cigars per day for about 30 years. 01/04: stable seen in his [facility] in the presence of nurse. no complaint. 01/05: Seen stable continue with uncontrolled hyperglycemia, increased Levemir to 14 units BID and continue sliding scale to medium dose and regular insulin with premeal 5 units. 01/06: Stable seen in the presence of nurse Miss Matthew, he states he was drinking some juices with sugar in am that were brought in for another patient also ate some biscuits now his blood sugar is uncontrolled, for the purpose to be transferred to [facility] in am will try to handle his blood sugar with long lasting insulin and continue metformin, evident poor medical compliance with his diet. gave recommendations for management off sliding scale Objective Vital Signs Date Time Temp Pulse Resp B/P (MAP) Pulse Ox O2 Delivery O2 Flow Rate FiO2 01/06/17 05:56 97.9 85 18 136/75 (95) 96 01/05/17 17:40 97.7 89 18 147/84 (105) 99 Result Diagram: 01/03/17204901/03/17 0720 Imaging Last Impressions Head CT 01/03/17 0000 Signed Impressions: Service Date/Time: Tuesday, January 03, 2017 21:15 - CONCLUSION: Negative noncontrast CT. Bob Richardson MD Foot X-Ray 01/03/17 0000 Signed Impressions: Service Date/Time: Tuesday, January 03, 2017 17:37 - CONCLUSION: 1. Subacute fractures as above. Eusebio Koenig MD Ankle X-Ray 01/03/17 0000 Signed Impressions: Service Date/Time: Tuesday, January 03, 2017 17:38 - CONCLUSION: 1. There is no evidence of acute fracture. Eusebio Koenig MD Procedures None Other Results Laboratory Tests Test 01/03/17 07:20 01/03/17 20:50 Blood Urea Nitrogen 12 MG/DL Creatinine 0.67 MG/DL Random Glucose 320 MG/DL Calcium Level 8.8 MG/DL Sodium Level 135 MEQ/L Potassium Level 4.2 MEQ/L Chloride Level 102 MEQ/L Carbon Dioxide Level 26.7 MEQ/L Anion Gap 6 MEQ/L Estimat Glomerular Filtration Rate 124 ML/MIN Hemoglobin A1c 8.5 % Triglycerides Level 206 MG/DL Cholesterol Level 212 MG/DL LDL Cholesterol 134 MG/DL HDL Cholesterol 37.3 MG/DL Cholesterol/HDL Ratio 5.68 RATIO White Blood Count 7.6 TH/MM3 Red Blood Count 4.61 MIL/MM3 Hemoglobin 14.1 GM/DL Hematocrit 42.1 % Mean Corpuscular Volume 91.4 FL Mean Corpuscular Hemoglobin 30.5 PG Mean Corpuscular Hemoglobin Concent 33.4 % Red Cell Distribution Width 13.2 % Platelet Count 328 TH/MM3 Mean Platelet Volume 7.9 FL Neutrophils (%) (Auto) 58.0 % Lymphocytes (%) (Auto) 28.9 % Monocytes (%) (Auto) 7.1 % Eosinophils (%) (Auto) 4.6 % Basophils (%) (Auto) 1.4 % Neutrophils # (Auto) 4.4 TH/MM3 Lymphocytes # (Auto) 2.2 TH/MM3 Monocytes # (Auto) 0.5 TH/MM3 Eosinophils # (Auto) 0.3 TH/MM3 Basophils # (Auto) 0.1 TH/MM3 CBC Comment DIFF FINAL Differential Comment Total Bilirubin 0.3 MG/DL Direct Bilirubin 0.1 MG/DL Indirect Bilirubin 0.2 MG/DL Aspartate Amino Transf (AST/SGOT) 9 U/L Alanine Aminotransferase (ALT/SGPT) 18 U/L Alkaline Phosphatase 158 U/L Ammonia 36 MCMOL/L Total Protein 7.4 GM/DL Albumin 3.4 GM/DL Vitamin B12 Level 316 PG/ML 25-Hydroxy Vitamin D Total 11.9 ng/ML Thyroid Stimulating Hormone 3rd Gen 1.570 uIU/ML Rapid Plasma Reagin NON-REACTIVE Objective Remarks GENERAL: This is a well-nourished, well-developed patient, in no apparent distress. SKIN: No rashes, ecchymoses or lesions. Cool and dry. HEAD: Atraumatic. Normocephalic. No temporal or scalp tenderness. EYES: Pupils equal round and reactive. Extraocular motions intact. No scleral icterus. No injection or drainage. ENT: Nose without bleeding, purulent drainage or septal hematoma. Throat without erythema, tonsillar hypertrophy or exudate. Uvula midline. Airway patent. NECK: Trachea midline. No JVD or lymphadenopathy. Supple, nontender, no meningeal signs. CARDIOVASCULAR: Regular rate and rhythm without murmurs, gallops, or rubs. RESPIRATORY: Clear to auscultation. Breath sounds equal bilaterally. No wheezes , rales, or rhonchi. GASTROINTESTINAL: Abdomen soft, non-tender, nondistended. No hepato-splenomegaly , or palpable masses. No guarding. NEUROLOGICAL: Awake and alert. Cranial nerves II through XII intact. Motor and sensory grossly within normal limits. Five out of 5 muscle strength in all muscle groups. Normal speech. Medications and IVs Current Medications Medications (Trade) Dose Ordered Sig/Shakeel Route Start Time Stop Time Status Last Admin (Ativan) 1 mg Q6H PRN PO 01/02/17 13:15 01/05/17 23:06 (Ativan Inj) 1 mg Q6H PRN IM 01/02/17 13:15 (Tylenol) 650 mg Q4H PRN PO 01/02/17 13:15 01/06/17 09:23 (Milk Of Magnesia Liq) 30 ml DAILY PRN PO 01/02/17 13:15 (Mag-Al Plus Susp Liq) 30 ml Q6H PRN PO 01/02/17 13:15 (Habitrol 21 Mg Patch.24 Hr) 1 patch DAILY T-DERMAL 01/03/17 09:00 01/06/17 08:47 Miscellaneous Information 1 HS T-DERMAL 01/02/17 21:00 01/05/17 21:00 (NovoLOG SUPPLEMENTAL SCALE) 1 ACHS SLIDING SCALE SQ 01/03/17 17:00 01/06/17 11:03 (Bacitracin Oint Packet) 0.9 gm DAILY TOPICAL 01/03/17 17:15 01/06/17 08:47 (NovoLOG INJ) 5 units TIDAC SQ 01/04/17 17:00 01/06/17 11:30 (Vitamin D3) 2,000 units DAILY PO 01/05/17 09:00 01/06/17 08:47 (Lipitor) 40 mg HS PO 01/05/17 21:00 01/05/17 21:00 (Levemir Inj) 15 units BID SQ 01/05/17 21:00 01/06/17 08:47 (Abilify) 5 mg DAILY PO 01/06/17 12:00 01/06/17 11:35 (Levemir Inj) 20 units ONCE ONCE SQ 01/06/17 12:15 01/06/17 12:16 UNV A/P Assessment and Plan This is a 51-year-old male past medical history tentatively schizophrenia who was Fernandez act Schizophrenia/Fernandez act continue management by Psychiatry specialist. Left ankle swelling -Patient has a history of left ankle fracture in which treatment was nonoperative.seen by Podiatry specialist continue wound care. Type 2 diabetes -Poorly controlled DM II, Hemoglobin A1C 8.5, today blood sugars in 450 but the patient states he is been drinking juices and cake from another patients will try to handle his blood sugar with long lasting insulin, placed off sliding scale for placement purposes but will continue to monitor closely with nurses to try to get him in control, also discussed with the patient to make him understand he can not eat or drink beverages with sugar in them, he states will help because he wants to go to [facility]. as discussed with Doctor Osman conference director to start Metformin by mouth I thought initially he had it was started at a dose of 1000 mg BID. Poor medical non compliance. tobacco dependence Strongly recommended to stop smoking. Hyperlipidemia started on Atorvastatin 40 mg daily. recommendations given will sign off the case. Discharge Planning as per attending physician. Shravan Carpenter MD Jan 06, 2017 12:54
[2017-01-06] MEDS ORDERED: metFORMIN HCL 850 MG TAB PO SCH (13:00)
[2017-01-06] MEDS: metFORMIN HCL 850 MG TAB PO SCH ×2 (14:30→17:31)
--- NOTE | 2017-01-06 15:06 | RADRPT ---
EXAM DATE/TIME: 01/06/2017 14:43 [facility] COMPARISON: No previous studies available for comparison. INDICATIONS : Short of breath. MEDICAL HISTORY : Diabetes mellitus type I. seizures SURGICAL HISTORY : None. ENCOUNTER: Initial ACUITY: 4 - 6 days PAIN SCORE: 0/10 LOCATION: Bilateral chest FINDINGS: A single view of the chest demonstrates the lungs to be symmetrically aerated without evidence of mas s, infiltrate or effusion. The cardiomediastinal contours are unremarkable. Osseous structures are intact. CONCLUSION: 1. No acute cardiopulmonary disease. Eusebio Koenig MD on January 06, 2017 at 15:05 Board Certified Radiologist. This report was verified electronically.
[2017-01-06 18:06] VITALS: BP 102/63; PULSE 107; RESP 17; TEMP 98; O2SAT 100
[2017-01-06] MEDS: REMOVE OLD NICOTINE PATCH T-DERMAL SCH (21:00)
[2017-01-06] MEDS: ATORVASTATIN 40 MG TAB PO SCH (21:52)
[2017-01-07 05:36] VITALS: BP 130/71; PULSE 89; RESP 18; TEMP 97.9; O2SAT 97
[2017-01-07] MEDS: metFORMIN HCL 850 MG TAB PO SCH (08:31)
[2017-01-07] MEDS: ARIPiprazole 5 MG TAB PO SCH (08:31)
[2017-01-07] MEDS: BACITRACIN OINT 0.9 GM PKT TOPICAL SCH (08:32)
[2017-01-07] MEDS: CHOLECALCIFEROL (VIT D3) 1000 UNIT TAB PO SCH (08:32)
[2017-01-07] MEDS: NICOTINE 21 MG/24 HR PATCH T-DERMAL SCH (08:34)
[2017-01-07] MEDS: INSULIN DETEMIR 100 UNITS/ML VIAL SQ SCH (08:39)
[2017-01-07] MEDS ORDERED: METF850 PO (09:57)
[2017-01-07] MEDS ORDERED: ARIP1TAB11 PO (09:57)
[2017-01-07] MEDS ORDERED: VITA1000 PO (09:57)
[2017-01-07] MEDS ORDERED: ATOR40TA16 PO (09:57)
[2017-01-07] MEDS ORDERED: LEVEMIR SQ (09:57)
--- NOTE | 2017-01-07 09:57 | HHI.DS ---
Psychiatry Discharge Summary Inpatient Psychiatric care?: Yes Advance Directive: No Mental Health AdvanceDirective: No Health Care Proxy: No Admission Admission Date Jan 02, 2017 at 12:42 Admission Diagnosis: (1) Adjustment disorder, unspecified ICD Code: F43.20 - Adjustment disorder, unspecified Brief History Mr. Webber is a 51-year-old male with a reported history of schizophrenia, although the underlying psychiatric diagnosis is unclear, who presents in transfer from [facility] under a Fernandez act. Documentation from [facility] reviewed in detail. I note that the patient presented there initially with left foot pain following a twisting injury. During the evaluation, patient's sister from [place] of [place] apparently contacted the providers in the ED and shared concerns about patient's level of function. Patient was evaluated psychiatrically by Dr. Edwards at [facility] who recommended initiation of the Fernandez act. Reviewing our own electronic medical record, I see no prior psychiatric contact within our system. Patient seen and examined with nurse. Chart reviewed. Case discussed with nursing staff. On my examination today, the patient presents as an extremely vague historian. He describes his mood as "okay." Sleep is reportedly modestly reduced recently but appetite is fair. No depressive symptoms (except perhaps for sleep disturbance) reported. No hypomanic or manic symptoms elicited. Patient does not describe any audiovisual hallucinations. I can elicit no nahum delusional material. He answers many questions with "I dunno." Affect is somewhat flat. There seems to be some degree of paucity of thought. The remainder of the psychiatric ROS is negative. The patient has no physical complaints at this time. Tobacco Use In Past 30 Days: 5 or More Cigarettes/Day Alcohol Use: Never Hospital Course Patient was admitted to a locked, inpatient psychiatric unit. A general medical consultation was obtained and the patient was medically cleared prior to discharge. Podiatry consultation was also obtained. Appropriate precautions were in place throughout patient's hospital stay. Patient was seen and examined daily on the unit by psychiatry and also visited by counselor. Psychotropic medications were adjusted. Patient was started on low-dose Abilify for prevention of relapse to decompensated psychosis. Patient tolerated medications well without side effects. There was no evidence of any suicidality or homicidality on the inpatient unit. The patient remained in good behavioral control and was medication compliant. Counselor has arranged for placement in assisted living facility, and patient is agreeable to proceeding to assisted living facility. On the day of discharge: Patient seen and examined. Chart reviewed. Case discussed in treatment team. Per nursing staff, no behavioral issues overnight. On my examination today, the patient is in good spirits. He is eager for discharge and remains agreeable to going to [facility] today. He denies any suicidal or homicidal ideation, intent or plan on direct questioning and contracts for safety. Mood is stable and euthymic, and I can elicit no depressive or hypomanic/manic symptoms. He denies any audiovisual hallucinations and does not appear internally stimulated. I can elicit no delusional material. He slept well overnight. He denies any side effects from medications. He has no physical complaints. Weighing the acute, chronic, and protective factors and based on the available evidence, I [employer] to a reasonable degree of medical certainty that the patient is at low imminent risk of harm to self or others from a mental illness as defined under the Fernandez act and his level of function is adequate for outpatient care. The patient has maximized benefit from this inpatient psychiatric hospital stay and will be discharged to [facility] today with psychiatric follow-up as arranged by counselor. Patient is also to follow-up with primary care. I have counseled the patient regarding warning signs for need to return to the psychiatric emergency room as part of the general safety plan. Results Blood Pressure 130 / 71 Vital Signs Date Time Temp Pulse Resp B/P (MAP) Pulse Ox O2 Delivery O2 Flow Rate FiO2 01/07/17 05:36 97.9 89 18 130/71 (90) 97 Laboratory Results Test 01/03/17 07:20 Cholesterol Level 212 MG/DL (120-200) HDL Cholesterol 37.3 MG/DL (40.0-60.0) Hemoglobin A1c 8.5 % (4.3-6.0) LDL Cholesterol 134 MG/DL (0-99) Triglycerides Level 206 MG/DL (42-150) Summary of Procedures None done Imaging Last Impressions Chest X-Ray 01/06/17 0000 Signed Impressions: Service Date/Time: January 14:43 - CONCLUSION: 1. No acute cardiopulmonary disease. Eusebio Koenig MD Head CT 01/03/17 0000 Signed Impressions: Service Date/Time: Tuesday, January 03, 2017 21:15 - CONCLUSION: Negative noncontrast CT. Bob Richardson MD Foot X-Ray 01/03/17 0000 Signed Impressions: Service Date/Time: Tuesday, January 03, 2017 17:37 - CONCLUSION: 1. Subacute fractures as above. Eusebio Koenig MD Ankle X-Ray 01/03/17 0000 Signed Impressions: Service Date/Time: Tuesday, January 03, 2017 17:38 - CONCLUSION: 1. There is no evidence of acute fracture. Eusebio Koenig MD Pending results at discharge: No Medications # of Antipsychotic meds at D/C: 1 Approp Antipsych med options 1 - Minimum of three failed multiple trials of monotherapy. 2 - Documented plan to taper to monotherapy due to previous use of multiple meds OR cross-taper in progress at D/C. 3 - Documentation of augmentation of Clozapine. 4 - Justification other than those listed in allowable values 1-3, document here : Discharge Discharge Date: Jan 07, 2017 Discharge Diagnosis: (1) Schizophrenia, residual type Diagnosis: Principal ICD Code: F20.5 - Residual schizophrenia Pt Condition on Discharge: Stable Discharge Disposition: ACLF/[facility]WNA Discharge Instructions Diet Instructions: Diabetic Diet Activities you can perform: Weight Bearing as Fermin Scheduled Appointment: [facility] providers Appointment Date: Jan 07, 2017 New Orders: AMMONIA - 1 Week VITAMIN D,25-HYDROXY - 2 Months New Medications: Aripiprazole (Aripiprazole) 5 Mg Tab 5 MG PO DAILY for Mental Health for 15 Days, #15 TAB 1 Refill Cholecalciferol (D 1000) 1,000 Unit Tab 2000 UNITS PO DAILY for Low vitamin D for 15 Days, TAB 1 Refill Insulin Detemir Inj (Levemir Inj) 1,000 unit/ 10 ML Vial 15 UNITS SQ BID for Blood Sugar Management for 15 Days, INJECTION 1 Refill Do not mix with any other Insulin. Metformin (Glucophage) 850 Mg Tab 850 MG PO BIDPC for Blood Sugar Management for 15 Days, TAB 1 Refill Continued Medications: Atorvastatin (Atorvastatin) 40 Mg Tab 40 MG PO HS for Cholesterol Management for 15 Days, TAB 1 Refill (This prescription has been renewed) Discontinued Medications: Benztropine (Benztropine) 0.5 Mg Tab 0.5 MG PO HS, #30 TAB 0 Refills Insulin Aspart Inj (Novolog Flexpen Inj) 300 Unit/3 Ml Pen 1 UNITS SQ for Blood Sugar Management, #1 PEN 0 Refills Lisinopril (Lisinopril) 5 Mg Tab 5 MG PO DAILY for Blood Pressure Management, #30 TAB 0 Refills Discharge Time <= 30 minutes Mental Status Examination Appearance: Appropriate Consciousness: Alert Orientation: x4 Motor Activity: Other (no hand tremor, no dystonia, no dyskinesia, no other motoric abnormalities noted) Speech: Unremarkable Language: Adequate Fund of Knowledge: Adequate Attention and Concentration: Adequate Memory: Impaired (per MOCA) Mood: Good Affect: Appropriate (fairly full and reactive) Thought Process & Associations: Logical, Goal directed, Linear Thought Content: Appropriate Hallucination Type: None Delusion Type: None Suicidal Ideation: No Suicidal Plan: No Suicidal Intention: No Homicidal Ideation: No Homicidal Plan: No Homicidal Intention: No Insight: Fair Judgment: Adequate (fair) Discharge/Advance Care Plan Health Problems: (1) Schizophrenia, residual type Goals to promote your health * To prevent worsening of your condition and complications * To maintain your health at the optimal level Directions to meet your goals Take your medications as prescribed Follow your dietary instruction Follow activity as directed Keep your appointments as scheduled Take your immunizations and boosters as scheduled If your symptoms worsen call your PCP, if no PCP go to Urgent Care Center or Emergency Room For 27/09 questions related to your inpatient stay or results of tests pending at discharge, please contact Dr. Eusebio Forrester at Smoking is Dangerous to Your Health. Avoid second hand smoking Problem Qualifiers (1) Adjustment disorder, unspecified: Qualified Codes: F43.20 - Adjustment disorder, unspecified Eusebio Forrester MD Jan 07, 2017 09:57
[2017-01-07] MEDS: ACETAMINOPHEN 325 MG TAB PO PRN (10:02)
[2017-01-07 11:55] VITALS: RESP 18
== END 2017-01-07 12:29 | DRG 885 ==
LOC: H270 12:42
PROVIDERS: ADMIT Psychiatry & Neurology Psychiatry; ATTEND Psychiatry & Neurology Psychiatry
DX: F20.5 Residual schizophrenia (principal); E11.65 Type 2 diabetes mellitus with hyperglycemia; R60.0 Localized edema; M12.572 Traumatic arthropathy, left ankle and foot; E78.5 Hyperlipidemia, unspecified; S90.811A Abrasion, right foot, initial encounter; F17.210 Nicotine dependence, cigarettes, uncomplicated
CPT/HCPCS: 70450; 71010; 73610; 73630; 80048; 80061; 80076; 82140; 82306; 82607; 82948; 83036; 84443; 85025; 86592; 93005; 95819; J1815